=== PATIENT | male | born 1960 | race Caucasian/White ===

== ENCOUNTER 2022-02-06 10:49 | Emergency (ER) | payer OTHER, SELFPAY | END 2022-02-06 12:35 | disposition home or self-care (01) | LOC: ERS 10:49 | DX: M25.571 Pain in right ankle and joints of right foot (principal); M25.511 Pain in right shoulder; W01.0XXA Fall on same level from slipping, tripping and stumbling without subsequent striking against object, initial encounter ==

== ENCOUNTER 2023-10-03 17:11 | Inpatient (IN) | payer OTHER, MEDICAID ==
[2023-10-03] MEDS ORDERED: Boostrix 0.5 ML (Tdap) VIAL (>/=7 yrs of age) ONE (18:32)
[2023-10-03] MEDS ORDERED: Ketorolac Tromethamine 30 MG (1 mL) VIAL ONE (18:33)
[2023-10-03 19:04] LABS: #Eosinphils 0.1 thou/uL (0.0-0.7); #Monocytes 2.1 thou/uL (0.11-0.59); #Neutrophils 8.3 thou/uL (1.40-6.50); %Basophils 0.3 % (0.0-1.0); %Eosinophils 1.1 % (0.0-10.0); %Lymphocytes 14.1 % (21.0-51.0); %Monocytes 16.7 % (0.0-10.0); %Neutrophils 67.6 % (42.0-75.0); Hematocrit 40.9 % (42.0-52.0); Hemoglobin 14.7 g/dL (14.0-18.0); Mean Corpuscular HGB CONC 35.9 g/dL (32.0-36.0); Mean Corpuscular Hemoglobin 33.9 pg (27.0-31.0); Mean Corpuscular Volume 94.5 fl (78.0-98.0); Mean Platelet Volume 10.5 fL (7.4-10.4); Platelet Count 212 10x3/uL (130-400); Red Blood Cell (RBC) Count 4.33 mill/uL (4.70-6.10); White Blood Cell (WBC) Count 12.3 10x3/uL (4.8-10.8)
[2023-10-03 19:24] LABS: ALT (SGPT) 12 U/L (8-55); AST (SGOT) 15 U/L (5-34); Albumin 4.8 g/dL (3.4-4.8); Alkaline Phosphatase 50 U/L (40-110); Anion Gap 15 mmol/L (10-20); BUN (Urea Nitrogen) 13 mg/dL (8.4-25.7); Calc. Creatinine Clearance 0 mL/min (70-130); Carbon Dioxide 20 mmol/L (23-31); Chloride 105 mmol/L (98-107); Estimated GFR 100; Globulin 2.8 g/dL (2.4-3.5); Glucose 120 mg/dL (80-115); Protein, Total 7.6 g/dL (5.8-8.1); Sodium 136 mmol/L (136-145)
[2023-10-03] MEDS ORDERED: Ondansetron ODT 4 MG TAB PO PRN (19:28)
[2023-10-03] MEDS ORDERED: Ondansetron PF 4 MG/2 ML Vial IVP PRN (19:28)
[2023-10-03] MEDS ORDERED: Dextrose 5% in Water 1,000 ML IV PRN (19:28)
[2023-10-03] MEDS ORDERED: Glucagon 1 MG/ML KIT IM PRN (19:28)
[2023-10-03] MEDS ORDERED: Dextrose 50% Abboject 50 ML SYRINGE SLOW IVP PRN (19:28)
[2023-10-03] MEDS ORDERED: Acetaminophen 325 MG TAB PO PRN (19:28)
[2023-10-03] MEDS ORDERED: Ipratropium/Albuterol 3 ML NEB NEB PRN (19:28)
[2023-10-03] MEDS: HYDROcodone/Acetaminophen 5/325 mg Tablet PO PRN (21:01)
[2023-10-03] MEDS: Ampicillin/Sulbactam 3 GM in Sodium Chloride 0.9% 100 ML IVPB SCH (21:38)
[2023-10-03] MEDS: TETANUS, DIPHTHERIA TOX,ADULT (TDVAX) 0.5 ML VIAL IM ONE (22:19)
[2023-10-04 06:25] LABS: #Basophils 0.1 thou/uL (0.0-0.2); #Eosinphils 0.1 thou/uL (0.0-0.7); #Monocytes 1.6 thou/uL (0.11-0.59); #Neutrophils 7.7 thou/uL (1.40-6.50); %Basophils 0.5 % (0.0-1.0); %Eosinophils 1.1 % (0.0-10.0); %Lymphocytes 13.9 % (21.0-51.0); %Monocytes 14.6 % (0.0-10.0); %Neutrophils 69.4 % (42.0-75.0); Hematocrit 40.7 % (42.0-52.0); Hemoglobin 13.9 g/dL (14.0-18.0); Mean Corpuscular HGB CONC 34.2 g/dL (32.0-36.0); Mean Corpuscular Hemoglobin 33.1 pg (27.0-31.0); Mean Corpuscular Volume 96.9 fl (78.0-98.0); Mean Platelet Volume 10.7 fL (7.4-10.4); Platelet Count 180 10x3/uL (130-400); RBC Distribution Width 13.2 % (11.5-14.5); White Blood Cell (WBC) Count 11.1 10x3/uL (4.8-10.8)
[2023-10-04 06:59] LABS: Anion Gap 16 mmol/L (10-20); BUN (Urea Nitrogen) 9 mg/dL (8.4-25.7); Calc. Creatinine Clearance 0 mL/min (70-130); Calcium 9.5 mg/dL (7.8-10.44); Carbon Dioxide 20 mmol/L (23-31); Chloride 104 mmol/L (98-107); Estimated GFR 103; Glucose 113 mg/dL (80-115); Sodium 136 mmol/L (136-145)
[2023-10-05 06:13] LABS: #Basophils Less than 0.0 thou/uL (0.0-0.2); #Eosinphils 0.2 thou/uL (0.0-0.7); #Monocytes 1.3 thou/uL (0.11-0.59); #Neutrophils 6.2 thou/uL (1.40-6.50); %Basophils 0.2 % (0.0-1.0); %Eosinophils 2.2 % (0.0-10.0); %Lymphocytes 16.7 % (21.0-51.0); %Monocytes 13.6 % (0.0-10.0); Hematocrit 40.9 % (42.0-52.0); Hemoglobin 14.4 g/dL (14.0-18.0); Mean Corpuscular HGB CONC 35.2 g/dL (32.0-36.0); Mean Corpuscular Hemoglobin 33.7 pg (27.0-31.0); Mean Corpuscular Volume 95.8 fl (78.0-98.0); Mean Platelet Volume 10.8 fL (7.4-10.4); Platelet Count 172 10x3/uL (130-400); RBC Distribution Width 12.9 % (11.5-14.5); Red Blood Cell (RBC) Count 4.27 mill/uL (4.70-6.10); White Blood Cell (WBC) Count 9.2 10x3/uL (4.8-10.8)
[2023-10-05] MEDS ORDERED: Bacitracin Zinc Ointment 30 gm TUBE ONE (13:43)
[2023-10-05] MEDS ORDERED: Bupivacaine PF 0.5% 30 ML VIAL ONE (13:43)
[2023-10-05] MEDS ORDERED: PROPOFOL 20 ML ONE (13:52)
[2023-10-05] MEDS ORDERED: fentaNYL PF 100 MCG/2 ML SYRINGE ONE (13:53)
[2023-10-05] MEDS ORDERED: Lidocaine 1% PF 5 ML VIAL ONE (13:53)
[2023-10-05] MEDS ORDERED: CEFAZOLIN 2 GM VIAL ONE (13:59)
[2023-10-05] MEDS ORDERED: Sodium Chloride 0.9% 100 ML ONE (13:59)
[2023-10-05] MEDS ORDERED: fentaNYL 50 mcg/mL 1 mL Vial ONE ×2 (14:32→15:44)
[2023-10-05] MEDS ORDERED: Meperidine HCl/PF 25 MG (1 mL) VIAL ONE (15:27)
[2023-10-05] MEDS ORDERED: Promethazine HCl 25 MG/ML VIAL IM PRN (16:08)
[2023-10-05] MEDS ORDERED: Milk Of Magnesia 30 ML UDCUP PO PRN (16:08)
[2023-10-05] MEDS ORDERED: Meperidine HCl/PF 25 MG (1 mL) VIAL IM PRN (16:11)
[2023-10-05] MEDS ORDERED: Ketorolac Tromethamine 30 MG (1 mL) VIAL IVP PRN (16:11)
[2023-10-05] MEDS ORDERED: Ketorolac Tromethamine 30 MG (1 mL) VIAL ONE (16:13)
[2023-10-05] MEDS ORDERED: Communication Order-Pharmacy FS SCH ×2 (16:15→17:15)
[2023-10-05] MEDS: TETANUS, DIPHTHERIA TOX,ADULT (TDVAX) 0.5 ML VIAL IM ONE (17:52)
[2023-10-05] MEDS: Aspirin 81 mg Enteric Coated Tablet PO SCH (20:30)
[2023-10-05] MEDS: Vancomycin (BATCH) 1.25 GM in Premix 1 BAG IVPB SCH (21:23)
[2023-10-05] MEDS: traMADol HCl 50 MG TAB PO PRN (23:17)
[2023-10-05] MEDS: Morphine 4 MG/ML VIAL SLOW IVP PRN (23:17)
[2023-10-05] MEDS: fentaNYL 50 mcg/mL 1 mL Vial SLOW IVP PRN (23:53)
[2023-10-06] MEDS: HYDROcodone/Acetaminophen 10/325 mg Tablet PO PRN (01:20)
[2023-10-06 04:34] LABS: #Basophils Less than 0.03 10x3/uL (0.0-0.2); %Basophils 0.2 % (0.0-1.0); %Eosinophils 1.8 % (0.0-10.0); %Lymphocytes 14.3 % (21.0-51.0); %Neutrophils 69.1 % (42.0-75.0); Hematocrit 36.9 % (42.0-52.0); Hemoglobin 13.2 g/dL (14.0-18.0); Mean Corpuscular HGB CONC 35.8 g/dL (32.0-36.0); Mean Corpuscular Hemoglobin 34.3 pg (27.0-31.0); Mean Corpuscular Volume 95.8 fL (78.0-98.0); Platelet Count 176 10x3/uL (130-400); RBC Distribution Width 12.5 % (11.5-14.5); Red Blood Cell (RBC) Count 3.85 mill/uL (4.70-6.10)
[2023-10-06 04:55] LABS: ALT (SGPT) 7 U/L (8-55); AST (SGOT) 11 U/L (5-34); Albumin 3.9 g/dL (3.4-4.8); Alkaline Phosphatase 43 U/L (40-110); Anion Gap 12 mmol/L (10-20); BUN (Urea Nitrogen) 8 mg/dL (8.4-25.7); Bilirubin, Total 1.2 mg/dL (0.2-1.2); Calc. Creatinine Clearance 113 mL/min (70-130); Calcium 9.5 mg/dL (7.8-10.44); Carbon Dioxide 22 mmol/L (23-31); Chloride 102 mmol/L (98-107); Estimated GFR 105; Globulin 2.8 g/dL (2.4-3.5); Glucose 98 mg/dL (80-115); Potassium 3.9 mmol/L (3.5-5.1); Protein, Total 6.7 g/dL (5.8-8.1); Sodium 132 mmol/L (136-145)
[2023-10-07] MEDS: traMADol HCl 50 MG TAB PO PRN (04:37)
[2023-10-08 06:53] LABS: Vancomycin, Random 13.7 ug/mL (See Comment)
[2023-10-08] MEDS ORDERED: Sodium Bicarbonate 2.5 MEQ/5 ML SDV ONE (08:43)
[2023-10-08] MEDS ORDERED: Lidocaine 1% PF 5 ML VIAL ONE (08:43)
[2023-10-08] MEDS: Ampicillin/Sulbactam 3 GM in Sodium Chloride 0.9% 100 ML IVPB SCH (20:37)
[2023-10-09] MEDS ORDERED: Lidocaine 2% PF 5 ML VIAL ONE (06:33)
[2023-10-09] MEDS ORDERED: Ondansetron PF 4 MG/2 ML Vial ONE (06:33)
[2023-10-09] MEDS ORDERED: Metoclopramide HCl 10 MG (2 mL) VIAL ONE (06:33)
[2023-10-09] MEDS ORDERED: Ketorolac Tromethamine 30 MG (1 mL) VIAL ONE (06:34)
[2023-10-09] MEDS ORDERED: PROPOFOL 20 ML ONE (06:34)
[2023-10-09] MEDS ORDERED: Midazolam HCl 2 mg/2 ml Vial ONE (06:34)
[2023-10-09] MEDS ORDERED: fentaNYL PF 100 MCG/2 ML SYRINGE ONE (06:34)
[2023-10-09] MEDS ORDERED: Bacitracin Zinc Ointment 30 gm TUBE ONE (06:49)
[2023-10-09] MEDS ORDERED: Bupivacaine PF 0.5% 30 ML VIAL ONE (06:49)
[2023-10-09] MEDS ORDERED: Ondansetron HCl/PF 4 MG/2 ML Vial IVP PRN (07:44)
[2023-10-09] MEDS ORDERED: PACU-Morphine 4MG/ML VIAL SLOW IVP PRN (07:44)
[2023-10-09] MEDS ORDERED: Promethazine HCl 25 MG/ML VIAL IM PRN (07:44)
[2023-10-09] MEDS ORDERED: fentaNYL 50 mcg/mL 1 mL Vial ONE (08:07)
[2023-10-09] MEDS ORDERED: HYDROmorphone 0.5 MG/0.5 ML SYRINGE ONE (08:13)
[2023-10-09] MEDS: traMADol HCl 50 MG TAB PO PRN (15:54)
[2023-10-09] MEDS: traMADol HCl 50 MG TAB PO SCH (18:26)
[2023-10-10 13:43] VITALS: BMI 20.1
[2023-10-11] MEDS: Amoxicillin/Potassium Clav 875 MG TAB PO SCH (11:49)
[2023-10-11] MEDS: Ampicillin/Sulbactam 3 GM in Sodium Chloride 0.9% 100 ML IVPB SCH (15:23)
[2023-10-11] MEDS: hydrALAZINE 20 MG/ML VIAL SLOW IVP PRN (16:20)
[2023-10-11] MEDS ORDERED: Amoxicillin/Potassium Clav 875 MG TAB PO SCH (21:00)
[2023-10-11] MEDS ORDERED: Labetalol HCl 100 MG/20 ML VIAL SLOW IVP PRN (23:34)
[2023-10-11] MEDS: Metoprolol Tartrate 25 MG TAB PO SCH (23:42)
[2023-10-12 04:42] LABS: #Basophils 0.04 10x3/uL (0.0-0.2); %Basophils 0.4 % (0.0-1.0); %Eosinophils 3.9 % (0.0-10.0); %Lymphocytes 14.4 % (21.0-51.0); %Monocytes 11.7 % (0.0-10.0); Hematocrit 38.5 % (42.0-52.0); Hemoglobin 13.8 g/dL (14.0-18.0); Mean Corpuscular HGB CONC 35.8 g/dL (32.0-36.0); Mean Corpuscular Hemoglobin 33.3 pg (27.0-31.0); Mean Corpuscular Volume 92.8 fL (78.0-98.0); Mean Platelet Volume 10.1 fL (7.4-10.4); Platelet Count 354 10x3/uL (130-400); RBC Distribution Width 12.1 % (11.5-14.5); Red Blood Cell (RBC) Count 4.15 mill/uL (4.70-6.10)
[2023-10-12 05:01] LABS: Anion Gap 14 mmol/L (10-20); BUN (Urea Nitrogen) 10 mg/dL (8.4-25.7); Calc. Creatinine Clearance 103 mL/min (70-130); Calcium 10.5 mg/dL (7.8-10.44); Carbon Dioxide 23 mmol/L (23-31); Chloride 102 mmol/L (98-107); Estimated GFR 102; Glucose 121 mg/dL (80-115); Magnesium 2.3 mg/dL (1.6-2.6); Phosphorus 3.9 mg/dL (2.3-4.7); Potassium 4.2 mmol/L (3.5-5.1); Sodium 135 mmol/L (136-145)
[2023-10-12] MEDS: Saccharomyces boulardii 250 MG CAP PO SCH (09:56)
[2023-10-12] MEDS ORDERED: Vancomycin 1 GM VIAL ONE (11:14)
[2023-10-12] MEDS ORDERED: Bacitracin Zinc Ointment 30 gm TUBE ONE (11:14)
[2023-10-12] MEDS ORDERED: Bupivacaine PF 0.5% 30 ML VIAL ONE (11:14)
[2023-10-12] MEDS ORDERED: Mineral Oil Sterile 10 ML VIAL ONE (11:16)
[2023-10-12] MEDS ORDERED: fentaNYL PF 100 MCG/2 ML SYRINGE ONE (12:58)
[2023-10-12] MEDS ORDERED: Ondansetron HCl/PF 4 MG/2 ML Vial IVP PRN (12:59)
[2023-10-12] MEDS ORDERED: Promethazine HCl 25 MG/ML VIAL IM PRN (12:59)
[2023-10-12] MEDS ORDERED: PROPOFOL 20 ML ONE (12:59)
[2023-10-12] MEDS ORDERED: Midazolam HCl 2 mg/2 ml Vial ONE (12:59)
[2023-10-12] MEDS ORDERED: PHENYLEPHRINE-NS 100 MCG/ML 10 ML SYRINGE ONE (13:12)
[2023-10-12] MEDS ORDERED: ePHEDrine Sulfate 50 MG/10 ML VIAL ONE (13:23)
[2023-10-12] MEDS ORDERED: Ondansetron PF 4 MG/2 ML Vial ONE (13:40)
[2023-10-12] MEDS ORDERED: Morphine 4 MG/ML VIAL SLOW IVP PRN (15:15)
[2023-10-12] MEDS: Rabies Vaccine Human 2.5 UNITS VIAL IM ONE (16:49)
[2023-10-12] MEDS: Amlodipine 10 MG TAB PO SCH (19:52)
[2023-10-12 20:35] VITALS: TEMP 98.2
[2023-10-13 08:10] VITALS: BP 169/83
[2023-10-13] MEDS: Amlodipine 10 MG TAB PO SCH (08:24)
[2023-10-14] MEDS ORDERED: Losartan 25 MG TAB PO SCH (09:00)
== END 2023-10-13 16:25 | disposition home or self-care (01) | DRG 574 ==
LOC: ERS 17:11 → MSONC 19:28
PROVIDERS: ADMIT Specialist; ATTEND Specialist
PROC: 0LB50ZZ Excision of Right Lower Arm and Wrist Tendon, Open Approach (ICD-10-PCS; 2023-10-05)
PROC: 0J9G0ZZ Drainage of Right Lower Arm Subcutaneous Tissue and Fascia, Open Approach (ICD-10-PCS; 2023-10-05)
PROC: 0X9J0ZZ Drainage of Right Hand, Open Approach (ICD-10-PCS; 2023-10-05)
PROC: 02HV33Z Insertion of Infusion Device into Superior Vena Cava, Percutaneous Approach (ICD-10-PCS; 2023-10-08)
PROC: B5181ZA Fluoroscopy of Superior Vena Cava using Low Osmolar Contrast, Guidance (ICD-10-PCS; 2023-10-08)
PROC: 3E04329 Introduction of Other Anti-infective into Central Vein, Percutaneous Approach (ICD-10-PCS; 2023-10-08)
PROC: B548ZZA Ultrasonography of Superior Vena Cava, Guidance (ICD-10-PCS; 2023-10-08)
PROC: 0HBDXZZ Excision of Right Lower Arm Skin, External Approach (ICD-10-PCS; 2023-10-09)
PROC: 0LB50ZZ Excision of Right Lower Arm and Wrist Tendon, Open Approach (ICD-10-PCS; 2023-10-09)
PROC: 0HRDXK3 Replacement of Right Lower Arm Skin with Nonautologous Tissue Substitute, Full Thickness, External Approach (ICD-10-PCS; principal; 2023-10-12)
PROC: 3E033XZ Introduction of Vasopressor into Peripheral Vein, Percutaneous Approach (ICD-10-PCS; 2023-10-12)
DX: L02.413 Cutaneous abscess of right upper limb (principal); M00.9 Pyogenic arthritis, unspecified; I77.89 Other specified disorders of arteries and arterioles; L03.113 Cellulitis of right upper limb; M65.841 Other synovitis and tenosynovitis, right hand; S61.531A Puncture wound without foreign body of right wrist, initial encounter; L08.9 Local infection of the skin and subcutaneous tissue, unspecified; S61.551A Open bite of right wrist, initial encounter; W54.0XXA Bitten by dog, initial encounter
CPT/HCPCS: 36415; 36569; 76942; 77001; 80048; 80053; 80202; 83735; 84100; 85025; 86140; 87070; 87205; 90471; 90715; 93005; 93010; 96372; C1751; J0295; J0360; J0665; J1170; J1885; J2001; J2175; J2250; J2270; J2405; J2704; J2765; J3010; J3370; J3490; Q4104

== ENCOUNTER 2024-04-29 12:31 | Outpatient (CLI) | payer MEDICARE, MEDICAID ==
[2024-04-29 13:57] LABS: #Basophils Less than 0.03 10x3/uL (0.0-0.2); %Basophils 0.3 % (0.0-1.0); %Eosinophils 4.8 % (0.0-10.0); %Lymphocytes 21.7 % (21.0-51.0); %Monocytes 14.3 % (0.0-10.0); %Neutrophils 58.8 % (42.0-75.0); Hematocrit 45.5 % (42.0-52.0); Hemoglobin 16.1 g/dL (14.0-18.0); Mean Corpuscular HGB CONC 35.4 g/dL (32.0-36.0); Mean Corpuscular Hemoglobin 34.5 pg (27.0-31.0); Mean Corpuscular Volume 97.4 fL (78.0-98.0); Mean Platelet Volume 11.4 fL (7.4-10.4); Platelet Count 194 10x3/uL (130-400); Red Blood Cell (RBC) Count 4.67 mill/uL (4.70-6.10)
[2024-04-29 14:12] LABS: PTT 27.6 sec (22.9-36.1)
[2024-04-29 14:13] LABS: ALT (SGPT) 12 U/L (8-55); AST (SGOT) 20 U/L (5-34); Albumin 4.6 g/dL (3.4-4.8); Alkaline Phosphatase 50 U/L (40-110); Anion Gap 14 mmol/L (10-20); BUN (Urea Nitrogen) 11 mg/dL (8.4-25.7); Bilirubin, Direct 0.5 mg/dL (0.1-0.3); Bilirubin, Total 1.7 mg/dL (0.2-1.2); Calc. Creatinine Clearance 0 mL/min (70-130); Calcium 10.4 mg/dL (7.8-10.44); Carbon Dioxide 23 mmol/L (23-31); Chloride 106 mmol/L (98-107); Estimated GFR 100; Glucose 102 mg/dL (80-115); Potassium 4.5 mmol/L (3.5-5.1); Protein, Total 7.5 g/dL (5.8-8.1); Sodium 138 mmol/L (136-145)
== END 2024-04-29 12:32 | disposition home or self-care (01) ==
LOC: LABBT 12:31
PROVIDERS: ATTEND Orthopaedic Surgery Hand Surgery
DX: Z01.818 Encounter for other preprocedural examination (principal); M19.042 Primary osteoarthritis, left hand
CPT/HCPCS: 80048; 80076; 85025; 85610; 85730; 87081; 93005; 93010

== ENCOUNTER 2024-06-20 14:55 | Outpatient (CLI) | payer MEDICARE, MEDICAID ==
[2024-06-20 16:47] LABS: Prothrombin Time 13.4 sec (12.0-14.7)
[2024-06-20 17:23] LABS: #Basophils Less than 0.03 10x3/uL (0.0-0.2); %Basophils 0.3 % (0.0-1.0); %Eosinophils 5.3 % (0.0-10.0); %Lymphocytes 27.8 % (21.0-51.0); %Monocytes 13.8 % (0.0-10.0); %Neutrophils 52.5 % (42.0-75.0); Hematocrit 40.7 % (42.0-52.0); Hemoglobin 14.5 g/dL (14.0-18.0); Mean Corpuscular HGB CONC 35.6 g/dL (32.0-36.0); Mean Corpuscular Hemoglobin 34.1 pg (27.0-31.0); Mean Corpuscular Volume 95.8 fL (78.0-98.0); Mean Platelet Volume 11.5 fL (7.4-10.4); Platelet Count 195 10x3/uL (130-400); RBC Distribution Width 12.7 % (11.5-14.5); Red Blood Cell (RBC) Count 4.25 mill/uL (4.70-6.10)
[2024-06-20 18:08] LABS: ALT (SGPT) 13 U/L (8-55); AST (SGOT) 17 U/L (5-34); Albumin 4.4 g/dL (3.4-4.8); Alkaline Phosphatase 48 U/L (40-110); Anion Gap 14 mmol/L (10-20); BUN (Urea Nitrogen) 13 mg/dL (8.4-25.7); Bilirubin, Direct 0.4 mg/dL (0.1-0.3); Bilirubin, Total 0.9 mg/dL (0.2-1.2); Calc. Creatinine Clearance 0 mL/min (70-130); Calcium 9.9 mg/dL (7.8-10.44); Carbon Dioxide 22 mmol/L (23-31); Chloride 108 mmol/L (98-107); Estimated GFR 99; Glucose 100 mg/dL (80-115); Potassium 3.6 mmol/L (3.5-5.1); Protein, Total 7.3 g/dL (5.8-8.1); Sodium 140 mmol/L (136-145)
== END 2024-06-20 14:56 | disposition home or self-care (01) ==
LOC: LABBT 14:55
PROVIDERS: ATTEND Orthopaedic Surgery Hand Surgery
DX: Z01.818 Encounter for other preprocedural examination (principal); M19.041 Primary osteoarthritis, right hand
CPT/HCPCS: 80048; 80076; 85025; 85610; 87081; 93005; 93010

== ENCOUNTER 2024-06-24 10:59 | Day surgery (SDC) | payer MEDICARE, MEDICAID ==
[2024-06-20 15:23] VITALS: BMI 19.2
[2024-06-24] MEDS ORDERED: PROPOFOL 0 ML ONE (11:41)
[2024-06-24] MEDS ORDERED: Lidocaine 1% PF 5 ML VIAL ONE (11:42)
[2024-06-24] MEDS ORDERED: CEFAZOLIN 2 GM VIAL ONE (12:03)
[2024-06-24] MEDS ORDERED: Bupivacaine PF 0.5% 30 ML VIAL ONE (12:10)
[2024-06-24] MEDS ORDERED: fentaNYL 50 mcg/mL 1 mL Vial ONE ×2 (12:19→13:42)
[2024-06-24] MEDS ORDERED: Ondansetron PF 4 MG/2 ML Vial ONE (12:58)
[2024-06-24] MEDS ORDERED: Ketorolac Tromethamine 30 MG (1 mL) VIAL ONE ×2 (12:58→14:49)
[2024-06-24] MEDS ORDERED: fentaNYL PF 100 MCG/2 ML SYRINGE ONE (14:15)
[2024-06-24] MEDS ORDERED: Midazolam HCl 2 mg/2 ml Vial ONE (14:15)
[2024-06-24] MEDS ORDERED: PROPOFOL 20 ML ONE (14:15)
== END 2024-06-24 16:52 | disposition home or self-care (01) ==
LOC: SDC 10:59
PROVIDERS: ATTEND Orthopaedic Surgery Hand Surgery
PROC: 0RRU0JZ Replacement of Right Metacarpophalangeal Joint with Synthetic Substitute, Open Approach (ICD-10-PCS; principal; 2024-06-24)
DX: M19.041 Primary osteoarthritis, right hand (principal); I10 Essential (primary) hypertension; E78.5 Hyperlipidemia, unspecified; Z87.891 Personal history of nicotine dependence; Z91.048 Other nonmedicinal substance allergy status; Z79.82 Long term (current) use of aspirin; Z79.899 Other long term (current) drug therapy
CPT/HCPCS: 26530; 73130; C1776; C1894; J0665; J1885; J2405; J2704; J3010; J2250

== ENCOUNTER 2025-04-20 09:23 | Outpatient (CLI) | payer MEDICARE, MEDICAID | END 2025-04-20 09:24 | disposition home or self-care (01) | LOC: BICCT 09:23 | PROVIDERS: ATTEND Family Medicine | DX: Z12.2 Encounter for screening for malignant neoplasm of respiratory organs (principal); Z87.891 Personal history of nicotine dependence | CPT/HCPCS: 71271 ==